=== PATIENT | female | born 1930 | race Caucasian/White ===

== ENCOUNTER 2018-12-13 11:43 | Emergency (ER) | payer MEDICARE, BC ==
[~2018-12-13] VITALS: Wt 62.4 kg
[~2018-12-13 11:43] MED LIST: AMLODIPINE10 MG PO; AVAPRO300 M1 PO; GLIPIZIDE5 MG PO; JANUVIA 100MG100 MG PO; NEXIUM20 MG PO; OMNICEF 300MG300 MG PO; PRILOSEC 20MG20 MG PO; SUPER EPA 2002000 MG PO; VITAMIN D35000 IU PO
[2018-12-13] MEDS ORDERED: PANTOPRAZOLE SO40 MG PO (12:29)
[2018-12-13] MEDS ORDERED: LASIX 80MG TABL80 MG (12:30)
[2018-12-13] MEDS ORDERED: ATORVASTATIN CA40 MG PO (12:30)
[2018-12-13] MEDS ORDERED: ISOSORBIDE30 MG PO (12:30)
[2018-12-13] MEDS ORDERED: METOPROLOL SUC100 M1 PO (12:30)
[2018-12-13] MEDS ORDERED: CLOPIDOGREL75 M2 PO (12:31)
[2018-12-13] MEDS ORDERED: LORAZEPAM0.5 M1 PO (12:31)
[2018-12-13] MEDS ORDERED: NITROGLYCERIN0.4 M1 SL (12:31)
[2018-12-13] MEDS ORDERED: PHARMASSURE FO0.4 MG PO (12:32)
[2018-12-13] MEDS ORDERED: MULTIVITAMIN PO (12:32)
[2018-12-13] MEDS ORDERED: ASPIR LOW81 MG PO (12:32)
[2018-12-13] MEDS ORDERED: ASCORBIC ACID500 M3 PO (12:32)
[2018-12-13 12:44] LABS: HEMATOCRIT 30.8 % (37.0-47.0); HEMOGLOBIN 9.3 g/dL (12.5-16.0); MEAN CELL VOLUME 95 fl (78-100); MEAN CORPUSCULAR HEMOGLOBIN 29 pg (27-31); MEAN CORPUSCULAR HGB CONC 30 g/dL (33-37); MEAN PLATELET VOLUME 10.9 fl (7.4-10.4); PLATELET COUNT 121 K/mm3 (130-400); RED BLOOD COUNT 3.23 M/mm3 (4.10-5.30); RED CELL DISTRIBUTION WIDTH 13.5 % (11.5-14.5)
[2018-12-13 13:13] LABS: ALBUMIN 3.5 g/dL (3.5-5.0); CALCIUM 9.2 mg/dL (8.4-10.2); POTASSIUM 3.8 mmol/L (3.6-5.0); TOTAL BILIRUBIN 0.7 mg/dL (0.2-1.3); TOTAL PROTEIN 6.3 g/dL (6.3-8.2)
[2018-12-13 13:31] LABS: LYMPHOCYTE 34 % (20-51); MONOCYTE 7 % (3-10); NEUTROPHILS 58 % (42-75)
[2018-12-13 13:32] LABS: HYPOCHROMIA 1+
[2018-12-13 16:37] VITALS: BP 118/57
== END 2018-12-13 16:24 | disposition short-term general hospital (02) ==
LOC: ED 11:43
PROVIDERS: Nurse Practitioner Primary Care
DX: I13.0 Hypertensive heart and chronic kidney disease with heart failure and stage 1 through stage 4 chronic kidney disease, or unspecified chronic kidney disease (principal); I50.9 Heart failure, unspecified; N18.9 Chronic kidney disease, unspecified; K21.9 Gastro-esophageal reflux disease without esophagitis; E78.5 Hyperlipidemia, unspecified; D64.9 Anemia, unspecified; C64.9 Malignant neoplasm of unspecified kidney, except renal pelvis; Z99.2 Dependence on renal dialysis; Z79.82 Long term (current) use of aspirin; Z79.02 Long term (current) use of antithrombotics/antiplatelets; Z95.0 Presence of cardiac pacemaker

== ENCOUNTER → 2019-03-19 | Outpatient (CLI) | payer MEDICARE, BC ==
[~2019-03-19] MED LIST changes: +ASCORBIC ACID500 M3 PO; +ASPIR LOW81 MG PO; +ATORVASTATIN CA40 MG PO; +CLOPIDOGREL75 M2 PO; +ISOSORBIDE30 MG PO; +LASIX 80MG TABL80 MG; +LORAZEPAM0.5 M1 PO; +METOPROLOL SUC100 M1 PO; +MULTIVITAMIN PO; +NITROGLYCERIN0.4 M1 SL; +PANTOPRAZOLE SO40 MG PO; +PHARMASSURE FO0.4 MG PO
== END ==
LOC: LAB 11:48
DX: D64.9 Anemia, unspecified (principal); E11.9 Type 2 diabetes mellitus without complications; I10 Essential (primary) hypertension; I25.5 Ischemic cardiomyopathy

== ENCOUNTER → 2019-03-21 | Outpatient (CLI) | payer MEDICARE, BC | LOC: RAD 12:46 | DX: I65.29 Occlusion and stenosis of unspecified carotid artery (principal) ==

== ENCOUNTER 2020-07-13 08:18 | Emergency (ER) | payer MEDICARE, BC ==
[~2020-07-13] VITALS: Wt 70.7 kg
[2020-07-13] MEDS ORDERED: METOPROLOL SUCC25 M1 PO (08:50)
[2020-07-13] MEDS ORDERED: AMIODARONE200 MG PO (08:51)
[2020-07-13] MEDS ORDERED: GOOD SENSE ASPI81 M1 PO (08:52)
[2020-07-13] MEDS ORDERED: ESCITALOPRAM5 MG PO (08:52)
[2020-07-13 09:06] LABS: EOS # 0.1 (0.04-0.40); EOS % 2.3 % (1.0-5.0); HEMATOCRIT 26.4 % (37.0-47.0); HEMOGLOBIN 8.1 g/dL (12.5-16.0); LYMPH# 1.5 (1.50-4.00); MEAN CELL VOLUME 96 fl (78-100); MEAN CORPUSCULAR HEMOGLOBIN 30 pg (27-31); MEAN CORPUSCULAR HGB CONC 31 g/dL (33-37); MEAN PLATELET VOLUME 10.5 fl (7.4-10.4); MONO # 0.5 (0.20-0.80); NEU # 3.2 (1.40-6.50); PLATELET COUNT 153 K/mm3 (130-400); RED BLOOD COUNT 2.75 M/mm3 (4.10-5.30); RED CELL DISTRIBUTION WIDTH 15.5 % (11.5-14.5); WHITE BLOOD COUNT 5.3 K/mm3 (4.8-10.8)
[2020-07-13 09:14] LABS: ALBUMIN 3.5 g/dL (3.4-4.8); POTASSIUM 4.2 mmol/L (3.5-5.1)
[2020-07-13 09:16] LABS: CALCIUM 8.9 mg/dL (8.3-10.5)
[2020-07-13 09:17] LABS: TOTAL PROTEIN 6.1 g/dL (6.2-8.1)
[2020-07-13 09:19] LABS: TOTAL BILIRUBIN 0.4 mg/dL (0.2-1.2)
[2020-07-13 09:23] LABS: TROPONIN-I 0.04 ng/mL (<0.030)
[2020-07-13 11:17] LABS: PROTHROMBIN TIME 10.4 SECONDS (9.0-12.0)
[2020-07-13 14:04] VITALS: BP 172/69
== END 2020-07-13 13:35 | disposition short-term general hospital (02) ==
LOC: ED 08:18
PROVIDERS: Internal Medicine; Nurse Practitioner Primary Care
DX: I21.4 Non-ST elevation (NSTEMI) myocardial infarction (principal); D64.9 Anemia, unspecified; N18.9 Chronic kidney disease, unspecified; I10 Essential (primary) hypertension; E78.5 Hyperlipidemia, unspecified; I25.10 Atherosclerotic heart disease of native coronary artery without angina pectoris; Z95.0 Presence of cardiac pacemaker; Z85.528 Personal history of other malignant neoplasm of kidney; Z79.01 Long term (current) use of anticoagulants; Z88.0 Allergy status to penicillin; Z88.1 Allergy status to other antibiotic agents; Z79.82 Long term (current) use of aspirin
CPT/HCPCS: J2270

== ENCOUNTER 2021-02-14 12:24 | Emergency (ER) | payer MEDICARE, BC ==
[~2021-02-14 12:24] MED LIST changes: +AMIODARONE200 MG PO; +ESCITALOPRAM5 MG PO; +GOOD SENSE ASPI81 M1 PO; +METOPROLOL SUCC25 M1 PO
[2021-02-14 12:39] LABS: BASO # 0.05 (0.02-0.10); EOS # 0.09 (0.04-0.40); EOS % 0.7 % (1.0-5.0); HEMATOCRIT 23.9 % (37.0-47.0); HEMOGLOBIN 7.4 g/dL (12.5-16.0); MEAN CELL VOLUME 104 fl (78-100); MEAN CORPUSCULAR HEMOGLOBIN 32 pg (27-31); MEAN CORPUSCULAR HGB CONC 31 g/dL (33-37); MEAN PLATELET VOLUME 10.8 fl (7.4-10.4); MONO # 0.83 (0.20-0.80); NEU # 9.41 (1.40-6.50); PLATELET COUNT 270 K/mm3 (130-400); RED BLOOD COUNT 2.31 M/mm3 (4.10-5.30); RED CELL DISTRIBUTION WIDTH 16.1 % (11.5-14.5); WHITE BLOOD COUNT 12.4 K/mm3 (4.8-10.8)
[2021-02-14 12:52] LABS: ALBUMIN 3.9 g/dL (3.4-4.8)
[2021-02-14 12:53] LABS: POTASSIUM 5.2 mmol/L (3.5-5.1)
[2021-02-14 12:54] LABS: CALCIUM 10.2 mg/dL (8.3-10.5)
[2021-02-14 12:55] LABS: TOTAL PROTEIN 6.9 g/dL (6.2-8.1)
[2021-02-14 12:57] LABS: TOTAL BILIRUBIN 0.5 mg/dL (0.2-1.2)
[2021-02-14 13:08] LABS: TROPONIN-I 0.54 ng/mL (<0.030)
[2021-02-14 13:13] LABS: PARTIAL THROMBOPLASTIN TIME 24.1 SECONDS (21.0-32.0); PROTHROMBIN TIME 10.2 SECONDS (9.0-12.0)
[2021-02-14 16:14] LABS: HEMATOCRIT 21.6 % (37.0-47.0)
[2021-02-14 16:21] LABS: HEMOGLOBIN 6.8 g/dL (12.5-16.0)
[2021-02-14 17:35] VITALS: BP 141/64
== END 2021-02-14 17:35 | disposition short-term general hospital (02) ==
LOC: ED
PROVIDERS: Family Medicine
DX: I21.4 Non-ST elevation (NSTEMI) myocardial infarction (principal); N18.9 Chronic kidney disease, unspecified; D64.9 Anemia, unspecified; I25.10 Atherosclerotic heart disease of native coronary artery without angina pectoris; I25.2 Old myocardial infarction; E11.9 Type 2 diabetes mellitus without complications; Z20.828 Contact with and (suspected) exposure to other viral communicable diseases; Z99.2 Dependence on renal dialysis; Z95.9 Presence of cardiac and vascular implant and graft, unspecified; Z88.0 Allergy status to penicillin; Z88.1 Allergy status to other antibiotic agents; Z88.8 Allergy status to other drugs, medicaments and biological substances; Z79.82 Long term (current) use of aspirin
CPT/HCPCS: C9113

== ENCOUNTER → 2021-08-05 | Outpatient (CLI) | payer MEDICARE, BC ==
[2021-08-05 16:25] LABS: BASO # 0.06 K/mm3 (0.02-0.10); EOS # 0.14 K/mm3 (0.04-0.40); EOS % 2.2 % (1.0-5.0); HEMOGLOBIN 7.6 g/dL (12.5-16.0); LYMPH# 1.57 K/mm3 (1.50-4.00); MEAN CELL VOLUME 103 fl (78-100); MEAN CORPUSCULAR HEMOGLOBIN 31 pg (27-31); MEAN CORPUSCULAR HGB CONC 30 g/dL (33-37); MEAN PLATELET VOLUME 10.6 fl (7.4-10.4); MONO # 0.69 K/mm3 (0.20-0.80); NEU # 3.77 K/mm3 (1.40-6.50); PLATELET COUNT 160 K/mm3 (130-400); RED BLOOD COUNT 2.42 M/mm3 (4.10-5.30); RED CELL DISTRIBUTION WIDTH 16.6 % (11.5-14.5); WHITE BLOOD COUNT 6.2 K/mm3 (4.8-10.8)
== END ==
LOC: LAB 16:00
PROVIDERS: Internal Medicine
DX: D64.9 Anemia, unspecified (principal)

== ENCOUNTER → 2021-08-10 | Outpatient (CLI) | payer MEDICARE, BC | LOC: LAB 15:59 | DX: Z12.11 Encounter for screening for malignant neoplasm of colon (principal) ==

== ENCOUNTER → 2022-02-08 | Outpatient (CLI) | payer MEDICARE, BC ==
[2022-02-08 16:38] LABS: POTASSIUM 4.4 mmol/L (3.5-5.1)
[2022-02-08 16:40] LABS: CALCIUM 9.8 mg/dL (8.3-10.5)
[2022-02-08 16:41] LABS: TOTAL PROTEIN 6.4 g/dL (6.2-8.1)
[2022-02-08 16:43] LABS: TOTAL BILIRUBIN 0.6 mg/dL (0.2-1.2)
[2022-02-08 16:46] LABS: BASO # 0.03 K/mm3 (0.02-0.10); EOS # 0.11 K/mm3 (0.04-0.40); EOS % 2.1 % (1.0-5.0); HEMATOCRIT 28.5 % (37.0-47.0); HEMOGLOBIN 8.9 g/dL (12.5-16.0); LYMPH# 1.31 K/mm3 (1.50-4.00); MEAN CELL VOLUME 98 fl (78-100); MEAN CORPUSCULAR HEMOGLOBIN 31 pg (27-31); MEAN CORPUSCULAR HGB CONC 31 g/dL (33-37); MEAN PLATELET VOLUME 11.5 fl (7.4-10.4); MONO # 0.57 K/mm3 (0.20-0.80); NEU # 3.13 K/mm3 (1.40-6.50); PLATELET COUNT 127 K/mm3 (130-400); RED BLOOD COUNT 2.92 M/mm3 (4.10-5.30); RED CELL DISTRIBUTION WIDTH 16.4 % (11.5-14.5); WHITE BLOOD COUNT 5.2 K/mm3 (4.8-10.8)
== END ==
LOC: LAB 16:15
PROVIDERS: Internal Medicine
DX: I25.5 Ischemic cardiomyopathy (principal); M54.6 Pain in thoracic spine; F41.1 Generalized anxiety disorder; M47.896 Other spondylosis, lumbar region; E03.9 Hypothyroidism, unspecified; M10.9 Gout, unspecified; E11.9 Type 2 diabetes mellitus without complications; K90.9 Intestinal malabsorption, unspecified